=== PATIENT | male | born 1945 | race African-American/Black ===

== ENCOUNTER → 2019-05-10 | Outpatient (CLI) | payer MEDICARE, BC ==
[2016-03-10 11:15] VITALS: BP 112/74
[~2019-05-10] MED LIST: ASPI-482 PO; ATOR10TA60 PO; CHOL10003 PO; HYDR12.575 PO; LOSA100T14 PO; METO50TA6 PO; MULT1TAB52 PO
--- NOTE | 2019-05-10 12:57 | RAD ---
EXAM: Abdomen sonogram. HISTORY: Pain. TECHNIQUE: Sonographic imaging of the abdomen was performed. COMPARISON: None. FINDINGS: The liver is normal in size. There is hepatic steatosis. No focal hepatic lesion is seen. The gallbladder wall is unremarkable. The common bile duct is normal in caliber. The kidneys are unremarkable. The pancreas is obscured due to bowel gas. The spleen is normal in size. The aorta is normal in caliber and partially obscured due to body habitus and bowel gas. The inferior vena cava is patent. IMPRESSION: 1. Hepatic steatosis. 2. Slightly limited exam due to body habitus and bowel gas. Electronically signed by: Rossana Nath MD (05/10/2019 12:54 PM) [id number]
== END | disposition home or self-care (01) ==
LOC: US 07:08
PROVIDERS: ATTEND Family Medicine
DX: K76.0 Fatty (change of) liver, not elsewhere classified (principal)
CPT/HCPCS: 76700